=== PATIENT | female | born 1985 | race Caucasian/White ===

== ENCOUNTER 2018-02-15 09:14 | Emergency (ER) | payer BC ==
[2018-02-15 09:24] VITALS: BMI 33.1
[2018-02-15] MEDS ORDERED: DEXTROSE 5%-LACTATED RINGERS 500 ML IV SCH ×2 (10:30→11:30)
[2018-02-15 11:26] VITALS: TEMP 98
[2018-02-15 12:49] VITALS: BP 120/77; PULSE 80
[2018-02-15] MEDS ORDERED: DEXTROSE 5%-LACTATED RINGERS 1,000 ML IV SCH (13:30)
== END 2018-02-15 15:50 | disposition home or self-care (01) ==
LOC: JER 09:14
DX: O46.8X3 Other antepartum hemorrhage, third trimester (principal); Z3A.32 32 weeks gestation of pregnancy
CPT/HCPCS: 99282-25